=== PATIENT | male | born 1975 | race Caucasian/White ===

== ENCOUNTER 2016-11-28 12:20 | Emergency (ER) | payer MEDICAID, OTHER ==
--- NOTE | 2016-11-28 12:31 | CPEKG ---
Heart Rate: 70 RR Interval: 857 P-R Interval: 176 QRSD Interval: 80 QT Interval: 396 QTC Interval: 428 P Bay: 60 QRS Bay: 55 T [place]: -72 EKG Severity - BORDERLINE ECG - EKG Impression: SINUS RHYTHM EKG Impression: BORDERLINE T ABNORMALITIES, INFERIOR LEADS Electronically Signed By: Merlin Bob 28-Nov-2016 12:37:14
[2016-11-28 12:35] VITALS: RESP 18; TEMP 97.9
[2016-11-28 12:49] LABS: ADD DIFF? NO; ADD MORPH? NO; ADD SCAN? NO; ATYPICAL LYMPHOCYTE FLAG 0 (0-99); FRAGMENT RBC FLAG 0 (0-99); HEMATOCRIT 44.8 % (40.0-51.0); HEMOGLOBIN 16.4 g/dL (13.7-17.5); LEFT SHIFT FLG 0 (0-99); LIPEMIA HEMOLYSIS FLAG 90 (0-99); MEAN CELL HEMOGLOBIN 30.4 pg (27.9-34.1); MEAN CELL HEMOGLOBIN CONCENTR. 36.6 g/dL (32.4-36.7); MEAN PLATELET VOLUME 10.1 fL (8.7-11.7); PLATELET CLUMPS FLAG 0 (0-99); PLATELET COUNT 247 10^3/uL (150-400); RED CELL DISTRIBUTION WIDTH 11.9 % (11.5-15.2)
[2016-11-28] MEDS ORDERED: LORazepam 2 MG/ML INJ IVP ONE (12:51)
--- NOTE | 2016-11-28 12:56 | UCPHY ---
H & P Patient Type: New Chief Complaint Nursing Narrative: CHEST PAIN MIDSTERNAL WITH RADIATION TO LEFT SHOULDER STARTED MONDAY, WITH DIFFICULTY BREATHING AND SHORTNESS OF BREATH. 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 PT DESCRIBES CP "ANXIETY" FEELING, REPORTS LOSS OF JOB AND INCREASED STRESS, UNABLE TO SLEEP AT NIGHT. Time Seen by Provider: 11/28/16 12:24 HPI/ROS: CHIEF COMPLAINT: Chest pain, dyspnea x3 days HISTORY OF PRESENT ILLNESS: 41-year-old male generally healthy in the urgent care with his complaining of 3 days of on and off chest pain, dyspnea. He describes unusually high levels of anxiety primarily related to recent professional issues. This feels like I have had 12 cups of coffee. The chest pain dyspnea non exertional. No history of thromboembolic disorder. No family history of premature coronary artery disease. No recent travel. No immobilization. No cocaine use. Nonsmoker. No alcohol use. REVIEW OF SYSTEMS: A ten point review of systems was performed and is negative with the exception of the items mentioned in the HPI PAST MEDICAL & SURGICAL HISTORY: No history of coagulopathy or coronary artery disease SOCIAL HISTORY: nonsmoker. No drug use. FAMILY HISTORY: siblings, mother father with no history of premature coronary artery disease PHYSICAL EXAM (Prior to examination, patient consented to physical exam, hands were washed and my usual and customary physical exam procedures followed) 1) GENERAL: Well-developed, well-nourished, alert and oriented. Appears anxious 2) HEAD: Normocephalic, atraumatic 3) HEENT: Pupils equal, round, reactive to light bilaterally. Sclera anicteric. 4) NECK: Full range of motion, no bruit . 5) LUNGS: Clear auscultation bilaterally, no wheezes, no rhonchi, no retractions. 6) HEART: Regular rate and rhythm, no murmur, no heave, no gallop. 7) ABDOMEN: No guarding, no rebound, no focal tenderness, negative McBurney's no palpable or pulsatile mass, 8) MUSCULOSKELETAL: Moving all extremities, no focal areas of tenderness, no obvious trauma. No peripheral edema or discoloration. negative Homans no palpable cord 9) BACK: No CVA tenderness, no midline vertebral tenderness, no fluctuance, no step-off, no obvious trauma, no visual or palpable abnormality. 10) SKIN: No rash, no petechiae. 11) Psychiatric: Patient is oriented X 3, there is no agitation. DIFFERENTIAL DIAGNOSIS: In no particular order, including but not limited to myocardial ischemia, pulmonary embolus, chest wall pain, pleural inflammation and pulmonary infectious causes. - Medical/Surgical History Other PMH: DENIES - Family History Significant Family History: No pertinent family hx - Social History Smoking Status: Never smoked Constitutional: Initial Vital Signs Temperature (C) 36.6 C 11/28/16 12:32 Heart Rate 76 11/28/16 12:32 Respiratory Rate 18 11/28/16 12:32 Blood Pressure 146/94 H 11/28/16 12:32 O2 Sat (%) 96 11/28/16 12:32 O2 Delivery Mode Room Air Allergies/Adverse Reactions: No Known Allergies Allergy (Unverified 11/28/16 12:31) Home Medications: Medication Instructions Recorded LORazepam [Ativan 1 mg (RX)] 1 mg PO Q6 PRN #10 tab 11/28/16 Medical Decision Making ED Course/Re-evaluation: Patient was re-evaluated with re-evaluation and serial exams. Discussed case Dr. Merlin Bob in the urgent care. I think that pulmonary embolus, PR, less than likely in this patient. We discussed possibility of anxiety. He was given 0.5 mg of Ativan IV and notes significant decrease in his anxiety. He would like prescription for similar. I do not think that further evaluation of hospitalization currently indicated. Usual and customary precautions provided and prescription for Ativan. He feels comfortable being discharged. All questions and concerns addressed by myself. - Data Points Laboratory Results: Laboratory Results 11/28/16 12:42 11/28/16 12:42 11/28/16 12:42 WBC 3.99 10^3/uL (3.80-9.50) RBC 5.40 10^6/uL (4.40-6.38) Hgb 16.4 g/dL (13.7-17.5) Hct 44.8 % (40.0-51.0) MCV 83.0 fL (81.5-99.8) MCH 30.4 pg (27.9-34.1) MCHC 36.6 g/dL (32.4-36.7) RDW 11.9 % (11.5-15.2) Plt Count 247 10^3/uL (150-400) MPV 10.1 fL (8.7-11.7) Neut % (Auto) 58.8 % (39.3-74.2) Lymph % (Auto) 35.1 % (15.0-45.0) [place] % (Auto) 4.8 % (4.5-13.0) Eos % (Auto) 0.8 % (0.6-7.6) Baso % (Auto) 0.5 % (0.3-1.7) Nucleat RBC Rel Count 0.0 % (0.0-0.2) Absolute Neuts (auto) 2.35 10^3/uL (1.70-6.50) Absolute Lymphs (auto) 1.40 10^3/uL (1.00-3.00) Absolute Monos (auto) 0.19 L 10^3/uL (0.30-0.80) Absolute Eos (auto) 0.03 10^3/uL (0.03-0.40) Absolute Basos (auto) 0.02 10^3/uL (0.02-0.10) Absolute Nucleated RBC 0.00 10^3/uL (0-0.01) Immature Gran % 0.0 % (0.0-1.1) Immature Gran # 0.00 10^3/uL (0.00-0.10) D-Dimer < 0.27 ug/mLFEU (0.00-0.50) Sodium 142 mEq/L (134-144) Potassium 4.1 mEq/L (3.5-5.2) Chloride 101 mEq/L (97-110) Carbon Dioxide 27 mEq/l (22-31) Anion Gap 14 mEq/L (8-16) BUN 15 mg/dL (7-23) Creatinine 1.1 mg/dL (0.7-1.3) Estimated GFR > 60 Glucose 108 H mg/dL (70-100) Calcium 9.8 mg/dL (8.5-10.4) Troponin I < 0.012 ng/mL (0-0.034) Departure - Departure Disposition: Home, Routine, Self-Care Clinical Impression: Dyspnea Qualifiers: Dyspnea type: unspecified Qualifier Code: (R06.00) Dyspnea, unspecified Condition: Good Instructions: Dyspnea (ED) Additional Instructions: Seek medical attention if you develop new or worsening chest pain, if you develop new or worsening shortness of breath, or any other symptoms that concern you. Referrals: Verónica Salvador MD [Medical Doctor] - 2-3 days, call for appt. Prescriptions: LORazepam [Ativan 1 mg (RX)] 1 mg PO Q6 PRN #10 tab PRN Reason: Anxiety - PQRS PQRS Measurement: n/a
[2016-11-28 13:06] LABS: ANION GAP 14 mEq/L (8-16); CALCIUM 9.8 mg/dL (8.5-10.4); CARBON DIOXIDE 27 mEq/l (22-31); CHLORIDE 101 mEq/L (97-110); CREATININE 1.1 mg/dL (0.7-1.3); GLOMERULAR FILTRATION RATE > 60; GLUCOSE 108 mg/dL (70-100); POTASSIUM 4.1 mEq/L (3.5-5.2); SODIUM 142 mEq/L (134-144)
[2016-11-28 13:17] LABS: TROPONIN I < 0.012 ng/mL (0-0.034)
[2016-11-28 14:38] VITALS: BP 148/92; PULSE 71; O2SAT 94
--- NOTE | 2016-11-28 14:51 | DX ---
Chest, PA and Lateral Upright Views - November 28, 2016, at 1:04 p.m. Clinical History: 41-year-old male with chest pain since yesterday, and a family history of cardiac d isease. Comparison Study: None. Findings: Telemetry monitoring lead lines are present. The cardiac and mediastinal silhouette are nor mal. There is no focal infiltrate, atelectasis, pleural effusion, peripheral interstitial edema, or p neumothorax. The osseous structures are age-appropriate. The trachea is midline. Impression: No acute abnormality.
== END 2016-11-28 14:00 | disposition home or self-care (01) ==
LOC: CED 12:20
DX: R06.00 Dyspnea, unspecified (principal); R07.9 Chest pain, unspecified
CPT/HCPCS: 71020-PO; 80048-PO; 84484-PO; 85025-PO; 85378-PO; 96374-PO; 99204-PO; G0463-PO